=== PATIENT | female | born 1985 | race Caucasian/White ===

== ENCOUNTER → 2024-10-23 | Outpatient (CLI) | payer BC, SELFPAY ==
[2024-10-24 09:48] LABS: BVAG Candida Positive (Negative); Bacterial Vaginosis Markers Positive (Negative); Candida glabrata Negative (Negative); Candida krusei PCR Negative (Negative); Trichomonas Negative (Negative)
== END | disposition home or self-care (01) ==
LOC: SLDO 15:57
PROVIDERS: Referring Provider Specialist; Visit Provider Specialist
DX: N76.0 Acute vaginitis (principal); A59.01 Trichomonal vulvovaginitis; R10.2 Pelvic and perineal pain
CPT/HCPCS: 81514; 87077; 87086; 87186